=== PATIENT | male | born 1990 | race Caucasian/White ===

== ENCOUNTER 2023-02-16 19:26 | Emergency (ER) | payer OTHER ==
[~2023-02-16] VITALS: Ht 167.6 cm; Wt 154.2 kg
--- NOTE | ~2023-02-16 | EKG ---
[facility] [address] [facility] [place], [place] [address] Draft EKG completed, results pending confirmation PATIENT NAME: ESTEBANKULWANT Electrocardiogram DATE OF : 86 PHYSICIAN: PRELIMINARY REPORT #: [id number] REPORT IS CONFIDENTIAL AND NOT TO BE RELEASED WITHOUT AUTHORIZATION
--- NOTE | ~2023-02-16 | EKG ---
[facility] [address] [facility] [place], [place] [address] Draft EKG completed, results pending confirmation PATIENT NAME: ESTEBANKULWANT Electrocardiogram DATE OF : 86 PHYSICIAN: PRELIMINARY REPORT #: [id number] REPORT IS CONFIDENTIAL AND NOT TO BE RELEASED WITHOUT AUTHORIZATION
[2023-02-16 19:43] LABS: BASOPHILS 1.5 % (0-2); EOSINOPHILS 3.1 % (0-6); HEMATOCRIT 50.3 % (35.0-50.0); HEMOGLOBIN 16.7 g/dL (12.0-18.0); LYMPHOCYTES 39.3 % (24-44); MCH 28.4 (27-36); MCHC 33.2 g/dl (30-36); MCV 85.7 fl (81-99); MONOCYTES 4.8 % (0-12); NEUTROPHILS 51.3 % (39-80); PLATELET COUNT 211 K/uL (140-440); RBC 5.87 M/ul (4.3-5.7); RDW 14.9 (10.5-15.0)
[2023-02-16 19:57] LABS: ALBUMIN 3.8 g/dL (3.4-5.0); ALBUMIN/GLOBULIN RATIO 0.93 (1.1-2.4); ANION GAP 14.9 (7-21); BILIRUBIN, TOTAL 0.4 ng/dL (0.2-1.0); BUN/CREATININE RATIO 9.8 (6.0-28.6); CALCIUM 9.2 mg/dL (8.5-10.1); CREATININE, SERUM 1.02 mg/dL (0.70-1.30); POTASSIUM 3.9 mmol/L (3.5-5.1); PROTEIN, TOTAL 7.9 g/dL (6.4-8.2)
[2023-02-16 21:21] LABS: BILIRUBIN, URINE NEGATIVE (negative); BLOOD/HGB, URINE NEGATIVE (Negative); KETONE, URINE NEGATIVE (Negative); LEUK ESTERASE, URINE NEGATIVE (negative); NITRITE, URINE NEGATIVE (negative); PH, URINE 7.5 (5-7)
[2023-02-16 21:37] LABS: AMPHETAMINES, URINE NEGATIVE (NEGATIVE); BARBITURATES, URINE NEGATIVE (NEGATIVE); BENZODIAZEPINE, URINE NEGATIVE (NEGATIVE); BUPRENORPHINE, URINE NEGATIVE (NEGATIVE); CANNABINOID, URINE POSITIVE (NEGATIVE); COCAINE, URINE NEGATIVE (NEGATIVE); ECSTASY, URINE NEGATIVE (NEGATIVE); FENTANYL, URINE NEGATIVE (NEGATIVE); METHADONE, URINE NEGATIVE (NEGATIVE); OPIATES, URINE NEGATIVE (NEGATIVE); OXYCODONE, URINE NEGATIVE (NEGATIVE); PHENCYCLIDINE, URINE NEGATIVE (NEGATIVE)
[2023-02-16] MEDS ORDERED: ELIQUIS5 MG PO ×2 (22:02→22:13)
[2023-02-16] MEDS ORDERED: DILT-XR120 MG PO ×2 (22:02→22:13)
[2023-02-16 22:52] VITALS: BP 111/86
== END 2023-02-16 22:54 | disposition home or self-care (01) ==
LOC: ED 19:26
PROVIDERS: Family Medicine
DX: I48.92 Unspecified atrial flutter (principal)
CPT/HCPCS: 36415; 80053; 80307; 81003; 83735; 84484; 85025; J2060; J7030

== ENCOUNTER 2024-10-19 22:05 | Emergency (ER) | payer OTHER ==
[~2024-10-19] VITALS: Ht 167.6 cm; Wt 160.8 kg
[~2024-10-19 22:05] MED LIST: DILT-XR120 MG PO; ELIQUIS5 MG PO
[2024-10-20] MEDS ORDERED: ZESTRIL10 MG PO (00:29)
[2024-10-20] MEDS ORDERED: LEXAPRO10 MG PO (00:30)
[2024-10-20] MEDS ORDERED: LEXAPRO20 MG PO (00:30)
[2024-10-20] MEDS ORDERED: OMEPRAZOLE20 MG PO (00:31)
[2024-10-20] MEDS ORDERED: LIPITOR20 MG PO (00:31)
[2024-10-20] MEDS ORDERED: HYDROXYZINE HCL25 MG PO (00:46)
[2024-10-20 01:26] VITALS: BP 171/97
--- NOTE | 2024-10-21 14:16 | EKG ---
[facility] [address] [facility] [place] [address] Signed Sinus tachycardia Incomplete right bundle branch block Borderline ECG When compared with ECG of 16-FEB-2023 19:32, Incomplete right bundle branch block is now present Confirmed by Kennedi Polo DO ([id number]) on 10/21/2024 2:16:20 PM Electronically Signed By: KENNEDI POLO DO 10/21/24 1416 PATIENT NAME: KULWANT ORELLANA Electrocardiogram DATE OF : 86 PHYSICIAN: KENNEDI POLO DO REPORT #: [id number] REPORT IS CONFIDENTIAL AND NOT TO BE RELEASED WITHOUT AUTHORIZATION
== END 2024-10-20 01:28 | disposition home or self-care (01) ==
LOC: ED 22:05
DX: F41.0 Panic disorder [episodic paroxysmal anxiety] (principal); R00.2 Palpitations; I10 Essential (primary) hypertension; Z79.01 Long term (current) use of anticoagulants; Z79.899 Other long term (current) drug therapy
CPT/HCPCS: 93005; 93010; 99284

== ENCOUNTER 2024-12-21 22:26 | Emergency (ER) | payer OTHER ==
[~2024-12-21] VITALS: Ht 167.6 cm; Wt 154.6 kg
--- OUTSIDE RECORDS SUMMARY | ~2024-12-21 | XMS | Continuity of Care Document ---
Demographics + + + | Address | [address] | | | [place] [address] | + + + | Preferred Language | Unknown | + + + | Marital Status | Never | + + + | Restorationist Affiliation | Unknown | + + + | Race | White | + + + | Ethnic Group | Not or | + + + Author + + + | Author | [facility] | + + + | Organization | [facility] | + + + | Address | [address] | | | [place] [address] | + + + | Phone | | + + + Care Team Providers + + + + | Care Electric Cutter Operator Name | Role | Phone | + + + + Unavailable | Unavailable | + + + + Unavailable | Unavailable | + + + + Allergies No information. Encounters No information. Functional Status No information. Immunizations No information. Medications + + + + | date | description | facility | + + + + | (no date) | LISINOPRIL | [facility] | | | | [facility] | + + + + | (no date) | OMEPRAZOLE | [facility] | | | | [facility] | + + + + | (no date) | ESCITALOPRAM OXALATE | [facility] | | | | [facility] | + + + + | (no date) | ESCITALOPRAM OXALATE | [facility] | | | | [facility] | + + + + | (no date) | ATORVASTATIN | [facility] | | | | [facility] | + + + + | 2024-10-20 00:00 | hydrOXYzine HCL | [facility] | | | | [facility] | + + + + Problems + + + + | date | description | facility | + + + + | 2024-10-20 00:00 | Generalized anxiety | [facility] | | | disorder with panic attacks | [facility] | | | | | + + + + | 2024-10-20 00:00 | Palpitations | [facility] | | | | [facility] | + + + + Procedures No information. Results/Labs No information. Social History + + + + | date | description | facility | + + + + | (no date) | Unknown if ever smoked | [facility] [place] | | | | [facility] | + + + + Vital Signs + + + +---------+ | date | measurement | value | units | + + + +---------+ | 2024-10-20 00:00 | BMI | 57.2 | kg/m2 | + + + +---------+ | 2024-10-20 00:00 | BP_diastolic | 97 | mmHg | + + + +---------+ | 2024-10-20 00:00 | BP_systolic | 171 | mmHg | + + + +---------+ | 2024-10-20 00:00 | heart_rate | 89 | /min | + + + +---------+ | 2024-10-20 00:00 | height_metric | 167.64 | cm | + + + +---------+ | 2024-10-20 00:00 | height_standard | 66 | in | + + + +---------+ | 2024-10-20 00:00 | o2_saturation | 95 | % | + + + +---------+ | 2024-10-20 00:00 | respiration_rate | 17 | /min | + + + +---------+ | 2024-10-20 00:00 | | 98.2 | F | | | temperature_standar | | | | | d | | | + + + +---------+ | 2024-10-20 00:00 | weight_metric | 160.801 | kg | + + + +---------+ | 2024-10-20 00:00 | weight_standard | 354.506 | lb | + + + +---------+"
[~2024-12-21 22:26] MED LIST changes: +HYDROXYZINE HCL25 MG PO; +LEXAPRO10 MG PO; +LEXAPRO20 MG PO; +LIPITOR20 MG PO; +OMEPRAZOLE20 MG PO; +ZESTRIL10 MG PO
[2024-12-21] MEDS ORDERED: LACTATED RINGER'S 1,000 ML IV ONE (22:45)
[2024-12-21 23:02] LABS: BASOPHILS 1.0 % (0.2-1.2); EOSINOPHILS 0 % (0.8-7.0); LYMPHOCYTES 26.7 % (21.8-53.1); MCH 28.8 PG (25.7-32.2); MCHC 33.4 g/dL (32.3-36.5); MCV 86.2 fL (79.0-92.2); MONOCYTES 4.6 % (5.3-12.2); NEUTROPHILS 67.1 % (34.0-67.9); RBC 5.49 M/uL (4.63-6.08)
[2024-12-21 23:24] LABS: ALT (SGPT) 14.0 U/L (14-59); AST (SGOT) 18.0 U/L (15-37); GLOMERULAR FILTRATION RATE,EST 91.0 mL/min (>60); PROTEIN, TOTAL 7.9 g/dL (6.4-8.2); UREA NITROGEN 14.0 mg/dL (7-18)
[2024-12-22] MEDS ORDERED: DIGOXIN 500 MCG/2 ML AMP IV ONE (01:00)
[2024-12-22] MEDS ORDERED: LANOXIN125 MCG PO (04:20)
[2024-12-22 05:04] VITALS: BP 100/66
--- NOTE | 2024-12-25 16:37 | EKG ---
[facility] [address] [place] [address] Signed Atrial flutter with variable AV block Right axis deviation Possible Anterior infarct , age undetermined Abnormal ECG When compared with ECG of 19-OCT-2024 22:11, Atrial flutter has replaced Sinus rhythm Incomplete right bundle branch block is no longer present Confirmed by Jos Soriano MD () on 12/25/2024 4:37:08 PM Electronically Signed By: JOS SORIANO MD 12/25/24 1637 PATIENT NAME: KULWANT ORELLANA Electrocardiogram DATE OF : 86 PHYSICIAN: JOS SORIANO MD REPORT #: [id number] REPORT IS CONFIDENTIAL AND NOT TO BE RELEASED WITHOUT AUTHORIZATION
--- NOTE | 2024-12-25 16:38 | EKG ---
[facility] [address] [place] [address] Signed Atrial flutter with variable AV block Rightward axis Low voltage QRS Cannot rule out Anterior infarct (cited on or before 21-DEC-2024) Abnormal ECG When compared with ECG of 21-DEC-2024 22:31, Serial changes of Anterior infarct present Confirmed by Jos Soriano MD () on 12/25/2024 4:38:15 PM Electronically Signed By: JOS SORIANO MD 12/25/24 1638 PATIENT NAME: KULWANT ORELLANA Electrocardiogram DATE OF : [birth year] PHYSICIAN: JOS SORIANO MD REPORT #: [id number] REPORT IS CONFIDENTIAL AND NOT TO BE RELEASED WITHOUT AUTHORIZATION
--- NOTE | 2024-12-25 16:39 | EKG ---
[facility] [address] [facility] [place] [address] Signed Atrial flutter with variable AV block Low voltage QRS Septal infarct , age undetermined Possible Inferior infarct , age undetermined Abnormal ECG Confirmed by Jos Soriano MD () on 12/25/2024 4:39:33 PM Electronically Signed By: JOS SORIANO MD 12/25/24 1639 PATIENT NAME: KULWANT ORELLANA AMY Electrocardiogram DATE OF : 86 PHYSICIAN: JOS SORIANO MD REPORT #: [id number] REPORT IS CONFIDENTIAL AND NOT TO BE RELEASED WITHOUT AUTHORIZATION
--- NOTE | 2024-12-25 17:56 | EKG ---
[facility] [address] [place] [address] Signed Poor data quality, interpretation may be adversely affected Sinus rhythm with 1st degree AV block with premature supraventricular complexes Otherwise normal ECG When compared with ECG of 21-DEC-2024 23:05, Sinus rhythm has replaced Atrial flutter Criteria for Septal infarct are no longer present Borderline criteria for Inferior infarct are no longer present ST no longer depressed in Inferior leads T wave inversion no longer evident in Anterior leads Confirmed by Jos Soriano MD () on 12/25/2024 5:56:33 PM Electronically Signed By: JOS SORIANO MD 12/25/24 1756 PATIENT NAME: KULWANT ORELLANA Electrocardiogram DATE OF : 86 PHYSICIAN: JOS SORIANO MD REPORT #: [id number] REPORT IS CONFIDENTIAL AND NOT TO BE RELEASED WITHOUT AUTHORIZATION
--- NOTE | 2024-12-25 17:58 | EKG ---
[facility] [address] [facility] [place] [address] Signed Normal sinus rhythm Possible Anterior infarct , age undetermined Abnormal ECG When compared with ECG of 22-DEC-2024 01:02, premature supraventricular complexes are no longer present VA interval has decreased Confirmed by Jos Soriano MD () on 12/25/2024 5:58:09 PM Electronically Signed By: JOS SORIANO MD 12/25/24 1758 PATIENT NAME: KULWANT ORELLANA AMY Electrocardiogram DATE OF : [birth year] PHYSICIAN: JOS SORIANO MD REPORT #: [id number] REPORT IS CONFIDENTIAL AND NOT TO BE RELEASED WITHOUT AUTHORIZATION
== END 2024-12-22 04:40 | disposition home or self-care (01) ==
LOC: ED 22:26
PROVIDERS: Internal Medicine
DX: I48.92 Unspecified atrial flutter (principal); Z79.01 Long term (current) use of anticoagulants
CPT/HCPCS: 36415; 71045; 80053; 83735; 83880; 84484; 85025; 85379; 93005; 93010; 96365; 96375; 96376; 99285-25; J1160; J7121